=== PATIENT | female | born 1980 | race Caucasian/White ===

== ENCOUNTER 2017-02-10 08:34 | Observation (INO) | payer OTHER ==
[~2017-02-10] VITALS: Ht 165.1 cm; Wt 65.8 kg
[~2017-02-10 08:34] MED LIST: DOCU240C31 PO; IBUP-1222 PO; METO100T3 PO; OXYC-302 PO; PREN1TAB52 PO
[2017-02-10] MEDS: SODIUM CHLORIDE 0.9% 1,000 ML IV SCH ×2 (09:21→14:32)
[2017-02-10] MEDS ORDERED: CEFAZOLIN PMX 1GM/50ML 50 ML IVPB ONE (09:30)
[2017-02-10] MEDS ORDERED: PLEASE ENTER HEIGHT AND WEIGHT MC SCH (09:30)
[2017-02-10 09:38] LABS: HEMOGLOBIN 14.2 g/dL (11.7-16.4)
[2017-02-10] MEDS ORDERED: FENTANYL PF 250 MCG/5ML ONE (09:38)
[2017-02-10] MEDS ORDERED: MIDAZOLAM 1 MG/ML, 5ML ONE (09:39)
[2017-02-10 09:47] LABS: ASPARTATE AMINO TRANSFERASE 10 U/L (15-37); BLOOD UREA NITROGEN 8 mg/dL (7-18)
[2017-02-10] MEDS ORDERED: METO-95 PO (09:50)
[2017-02-10 09:54] VITALS: BP 102/70
[2017-02-10] MEDS ORDERED: PROPOFOL 10 MG/ML, 20ML ONE (10:08)
[2017-02-10] MEDS ORDERED: SUCCINYLCHOLINE 20 MG/ML, 10ML ONE (10:08)
[2017-02-10] MEDS ORDERED: EPHEDRINE 50 MG/ML, 1ML ONE (10:08)
[2017-02-10] MEDS ORDERED: ROCURONIUM 10 MG/ML ONE (10:08)
[2017-02-10] MEDS ORDERED: CEFAZOLIN 1,000 MG ONE (10:08)
[2017-02-10] MEDS ORDERED: DEXAMETHASONE 4 MG/ML, 5ML ONE (10:08)
[2017-02-10] MEDS ORDERED: ONDANSETRON 2MG/ML, 2ML ONE (10:08)
[2017-02-10] MEDS ORDERED: HYDROcodone/APAP 5/325 TABLET PO PRN (12:00)
[2017-02-10] MEDS ORDERED: ALBUTEROL SULFATE 2.5 MG/3 ML NPPB PRN (12:00)
[2017-02-10] MEDS ORDERED: hydrALAzine 20 MG/ML, 1ML IV PRN (12:00)
[2017-02-10] MEDS ORDERED: ZOLPIDEM 5MG TABLET PO PRN (12:00)
[2017-02-10] MEDS ORDERED: MIDAZOLAM 1 MG/ML, 2ML IV PRN (12:00)
[2017-02-10] MEDS ORDERED: LABETALOL 5MG/ML, 20ML IV PRN (12:00)
[2017-02-10] MEDS ORDERED: FENTANYL PF 100 MCG/2ML IV PRN (12:00)
[2017-02-10] MEDS ORDERED: OXYcodone 5 MG/5 ML ORAL.SOL UDC PO PRN (12:00)
[2017-02-10] MEDS ORDERED: ACETAMINOPHEN 325 MG TABLET PO PRN (12:00)
[2017-02-10] MEDS ORDERED: PROMETHAZINE 25 MG/ML, 1ML IV PRN (12:00)
[2017-02-10] MEDS ORDERED: HYDROmorphone 1 MG/ML, 1ML IV PRN (12:00)
[2017-02-10] MEDS ORDERED: ACETAMINOPHEN 325 MG TABLET ONE (12:19)
[2017-02-10] MEDS ORDERED: ACETAMINOPHEN 650 MG/20.3 ML UDC ONE (12:19)
[2017-02-10] MEDS ORDERED: OXYcodone 5 MG/5 ML ORAL.SOL UDC ONE (12:20)
[2017-02-10 13:40] VITALS: BP 95/68
[2017-02-10 16:11] VITALS: BP 103/66
[2017-02-10] MEDS: CEFAZOLIN PMX 1GM/50ML 50 ML IVPB SCH (19:38)
[2017-02-10 20:00] VITALS: BP 99/63
[2017-02-10] MEDS: SODIUM CHLORIDE FLUSH 10ML SYR IVF SCH (21:00)
[2017-02-11 02:00] VITALS: BP 98/62
[2017-02-11] MEDS: CEFAZOLIN PMX 1GM/50ML 50 ML IVPB SCH (02:55)
[2017-02-11 08:08] VITALS: BP 103/66
[2017-02-11] MEDS ORDERED: HYDR-3240 PO (08:36)
[2017-02-11] MEDS: SODIUM CHLORIDE FLUSH 10ML SYR IVF SCH (08:39)
[2017-02-11] MEDS ORDERED: METOPROLOL SUCCINATE 100 MG TAB.ER.24H PO SCH (09:00)
== END 2017-02-11 11:56 | disposition home or self-care (01) ==
LOC: CACL 08:34 → ORIP 11:44 → 5SO 12:59
PROVIDERS: ADMIT Internal Medicine Cardiovascular Disease; ATTEND Internal Medicine Cardiovascular Disease
DX: I45.81 Long QT syndrome (principal); I49.01 Ventricular fibrillation; Z82.41 Family history of sudden cardiac death
CPT/HCPCS: 33249; 36415; 71010; 71020; 80053; 84702; 85025; 85610; 93005; 93641; 96365; 96375; C1721; C1779; C1892; C1895; G0378; J0330; J0690; J1100; J2250; J2405; J2704; J3010

== ENCOUNTER → 2017-02-17 | Outpatient (CLI) | payer SELFPAY ==
[~2017-02-17] MED LIST changes: +HYDR-3240 PO; +METO-95 PO
== END | disposition home or self-care (01) ==
LOC: CFH 13:32
PROVIDERS: ATTEND Internal Medicine Cardiovascular Disease
DX: Z95.0 Presence of cardiac pacemaker (principal)
CPT/HCPCS: 71020

== ENCOUNTER 2017-04-17 05:05 | Observation (INO) | payer OTHER ==
[~2017-04-17] VITALS: Ht 157.5 cm; Wt 59.1 kg
[2017-04-17] MEDS ORDERED: ASPIRIN 81 MG TABLET CHEW ONE (05:46)
[2017-04-17] MEDS ORDERED: ASPIRIN 81 MG TABLET CHEW PO ONE (06:00)
[2017-04-17] MEDS ORDERED: SODIUM CHLORIDE FLUSH 10ML SYR IVF ONE (06:00)
[2017-04-17] MEDS ORDERED: SODIUM CHLORIDE 0.9% 1,000ML IVBOLUS ONE (06:00)
[2017-04-17 06:10] LABS: BLOOD UREA NITROGEN 10 mg/dL (7-18)
[2017-04-17 06:15] LABS: IS PT STATUS REG ER OR PRE ER? YES
[2017-04-17] MEDS ORDERED: METOCLOPRAMIDE 5 MG/ML, 2ML IVPush ONE (06:30)
[2017-04-17 08:20] VITALS: BP 95/64
[2017-04-17] MEDS: SODIUM CHLORIDE 0.9% 1,000 ML IV SCH ×4 (08:36→18:21)
[2017-04-17] MEDS ORDERED: LABETALOL 5MG/ML, 20ML IVPush PRN (09:00)
[2017-04-17] MEDS: SENNA/DOCUSATE TABLET PO SCH (09:00)
[2017-04-17] MEDS ORDERED: HYDROcodone/APAP 5/325 TABLET PO PRN (09:00)
[2017-04-17] MEDS ORDERED: ENOXAPARIN 40 MG/0.4 ML SQ SCH (09:00)
[2017-04-17] MEDS ORDERED: ONDANSETRON ODT 4 MG PO PRN (09:00)
[2017-04-17] MEDS ORDERED: POLYETHYLENE GLYCOL 17 GM PACKET PO PRN (09:00)
[2017-04-17] MEDS ORDERED: morphine SULFATE 10 MG/ML, 1ML IVPush PRN (09:00)
[2017-04-17] MEDS ORDERED: ONDANSETRON 2MG/ML, 2ML IVPush PRN (09:00)
[2017-04-17] MEDS ORDERED: METOPROLOL SUCCINATE 100 MG TAB.ER.24H PO SCH ×3 (09:00→22:00)
[2017-04-17 10:09] LABS: IS PT STATUS REG ER OR PRE ER? NO
[2017-04-17] MEDS ORDERED: CEFAZOLIN PMX 1GM/50ML 50 ML IVPB ONE (11:00)
[2017-04-17 12:42] VITALS: BP 93/63
[2017-04-17] MEDS ORDERED: LIDOCAINE 2%, 20ML ONE (12:48)
[2017-04-17] MEDS ORDERED: MIDAZOLAM 1 MG/ML, 5ML ONE (12:48)
[2017-04-17] MEDS ORDERED: FENTANYL PF 100 MCG/2ML ONE (12:48)
[2017-04-17] MEDS ORDERED: CEFAZOLIN PMX 1GM/50ML 50 ML ONE (12:48)
[2017-04-17] MEDS ORDERED: CEFAZOLIN 1,000 MG ONE (12:48)
[2017-04-17 15:29] LABS: IS PT STATUS REG ER OR PRE ER? NO
[2017-04-17 20:00] VITALS: BP 96/61
[2017-04-18 01:25] VITALS: BP 100/63
[2017-04-18] MEDS: SODIUM CHLORIDE 0.9% 1,000 ML IV SCH ×2 (01:51→08:36)
[2017-04-18] MEDS ORDERED: ASPIRIN 81 MG TABLET EC PO SCH (06:00)
[2017-04-18 06:56] LABS: BLOOD UREA NITROGEN 9 mg/dL (7-18)
[2017-04-18 07:22] LABS: ASPARTATE AMINO TRANSFERASE 11 U/L (15-37)
[2017-04-18 07:41] VITALS: BP 97/61
[2017-04-18] MEDS ORDERED: METOPROLOL SUCCINATE 100 MG TAB.ER.24H PO SCH ×2 (09:00→21:00)
[2017-04-18] MEDS: SENNA/DOCUSATE TABLET PO SCH (09:00)
[2017-04-18 13:25] VITALS: BP 97/61
[2017-04-18] MEDS ORDERED: ASPI-621 PO (14:12)
== END 2017-04-18 17:05 | disposition home or self-care (01) ==
LOC: ED 06:51 → EDIP 06:52 → INTOOBSV 06:52 → ED 07:10 → 5SO 08:02
DX: T82.120A Displacement of cardiac electrode, initial encounter (principal); R74.8 Abnormal levels of other serum enzymes; R00.2 Palpitations; I45.81 Long QT syndrome; Y71.2 Prosthetic and other implants, materials and accessory cardiovascular devices associated with adverse incidents; Z82.41 Family history of sudden cardiac death; Z83.3 Family history of diabetes mellitus; Z87.891 Personal history of nicotine dependence; Z95.0 Presence of cardiac pacemaker; Z95.810 Presence of automatic (implantable) cardiac defibrillator
CPT/HCPCS: 33215; 36415; 71010; 80048; 80053; 80061; 82040; 82607; 82746; 83735; 83880; 84439; 84484; 84702; 85025; 85610; 93005; 93306; 99156; 99285; G0378; J0690; J2250; J3010; J3490; J7030

== ENCOUNTER → 2017-05-22 | Outpatient (CLI) | payer BC, OTHER ==
[~2017-05-22] MED LIST changes: +ASPI-621 PO
== END | disposition home or self-care (01) ==
LOC: CFH 15:08
PROVIDERS: ATTEND Internal Medicine Cardiovascular Disease
DX: Z48.812 Encounter for surgical aftercare following surgery on the circulatory system (principal); Z95.810 Presence of automatic (implantable) cardiac defibrillator
CPT/HCPCS: 71020

== ENCOUNTER 2017-05-26 11:07 | Observation (INO) | payer OTHER, BC ==
[~2017-05-26] VITALS: Ht 157.5 cm; Wt 61.2 kg
[2017-05-26] MEDS ORDERED: SODIUM CHLORIDE 0.9% 1,000 ML IV SCH (11:22)
[2017-05-26] MEDS ORDERED: CEFAZOLIN PMX 1GM/50ML 50 ML IVPB ONE (11:30)
[2017-05-26] MEDS ORDERED: PLEASE ENTER HEIGHT AND WEIGHT MC SCH (12:00)
[2017-05-26 12:05] VITALS: BP 95/67
[2017-05-26] MEDS ORDERED: MIDAZOLAM 1 MG/ML, 5ML ONE (13:09)
[2017-05-26] MEDS ORDERED: LIDOCAINE 2%, 20ML ONE (13:10)
[2017-05-26] MEDS ORDERED: FENTANYL PF 100 MCG/2ML ONE (13:10)
[2017-05-26] MEDS ORDERED: CEFAZOLIN PMX 1GM/50ML 50 ML ONE (13:10)
[2017-05-26] MEDS ORDERED: CEFAZOLIN 1,000 MG ONE (13:10)
[2017-05-26 13:12] LABS: BLOOD UREA NITROGEN 7 mg/dL (7-18)
[2017-05-26] MEDS ORDERED: HYDROcodone/APAP 5/325 TABLET PO PRN (14:30)
[2017-05-26] MEDS: CEFAZOLIN PMX 1GM/50ML 50 ML IVPB SCH (17:38)
[2017-05-26 18:26] VITALS: BP 112/79
[2017-05-26] MEDS: SODIUM CHLORIDE FLUSH 10ML SYR IVF SCH (20:10)
[2017-05-27] MEDS: CEFAZOLIN PMX 1GM/50ML 50 ML IVPB SCH (01:08)
[2017-05-27 01:18] VITALS: BP 93/62
[2017-05-27] MEDS: METOPROLOL SUCCINATE 100 MG TAB.ER.24H PO SCH ×2 (09:00→09:37)
[2017-05-27] MEDS: SODIUM CHLORIDE FLUSH 10ML SYR IVF SCH (09:38)
[2017-05-27 09:39] VITALS: BP 99/68
== END 2017-05-27 10:53 | disposition home or self-care (01) ==
LOC: CACL 11:07 → ORIP 14:14 → 5SO 14:49
PROVIDERS: ADMIT Internal Medicine Cardiovascular Disease; ATTEND Internal Medicine Cardiovascular Disease
DX: T82.110A Breakdown (mechanical) of cardiac electrode, initial encounter (principal); I45.81 Long QT syndrome; Y71.2 Prosthetic and other implants, materials and accessory cardiovascular devices associated with adverse incidents
CPT/HCPCS: 33216; 33244; 36415; 71010; 80048; 84702; 85025; 85610; 93005; 96365; 96375; 99156; 99157; C1892; C1895; G0378; J0690; J2250; J3010; J3490; Q9967

== ENCOUNTER → 2017-06-08 | Outpatient (CLI) | payer BC | END | disposition home or self-care (01) | LOC: CFH 13:28 | PROVIDERS: ATTEND Internal Medicine Cardiovascular Disease | DX: Z95.810 Presence of automatic (implantable) cardiac defibrillator (principal) | CPT/HCPCS: 71020 ==

== ENCOUNTER 2017-06-28 17:17 | Emergency (ER) | payer BC ==
[~2017-06-28] VITALS: Ht 157.5 cm; Wt 66.7 kg
[2017-06-28] MEDS ORDERED: ASPIRIN 81 MG TABLET CHEW PO ONE (18:00)
[2017-06-28] MEDS ORDERED: SODIUM CHLORIDE FLUSH 10ML SYR IVF ONE (18:00)
[2017-06-28] MEDS ORDERED: ONDANSETRON 2MG/ML, 2ML IVPush ONE (18:00)
[2017-06-28] MEDS ORDERED: MORPHINE SULFATE 4 MG/ML, 1ML IVPush PRN (18:00)
[2017-06-28 18:04] LABS: HEMATOCRIT 35.9 % (34.6-47.8); HEMOGLOBIN 12.1 g/dL (11.7-16.4); WHITE BLOOD COUNT 7.6 x10^3/uL (3.4-10)
[2017-06-28 18:11] LABS: BLOOD UREA NITROGEN 11 mg/dL (7-18)
[2017-06-28 18:16] LABS: IS PT STATUS REG ER OR PRE ER? YES
[2017-06-28] MEDS ORDERED: ASPIRIN 81 MG TABLET CHEW ONE (18:16)
[2017-06-28] MEDS ORDERED: MORPHINE SULFATE 4 MG/ML, 1ML ONE (18:16)
[2017-06-28] MEDS ORDERED: ONDANSETRON 2MG/ML, 2ML ONE (18:16)
[2017-06-28 19:24] VITALS: BP 100/46
== END 2017-06-28 19:26 | disposition home or self-care (01) ==
LOC: ED 19:20
DX: R07.2 Precordial pain (principal)
CPT/HCPCS: 36415; 71010; 80048; 82040; 83880; 84484; 85025; 93005; 99285

== ENCOUNTER 2017-07-12 16:18 | Emergency (ER) | payer BC ==
[~2017-07-12] VITALS: Ht 157.5 cm; Wt 70.6 kg
[2017-07-12 16:55] LABS: HEMATOCRIT 39.8 % (34.6-47.8); HEMOGLOBIN 13.4 g/dL (11.7-16.4); WHITE BLOOD COUNT 8.4 x10^3/uL (3.4-10)
[2017-07-12] MEDS ORDERED: ONDANSETRON 2MG/ML, 2ML IVPush ONE (17:00)
[2017-07-12] MEDS ORDERED: SODIUM CHLORIDE FLUSH 10ML SYR IVF ONE (17:00)
[2017-07-12 17:07] LABS: ASPARTATE AMINO TRANSFERASE 30 U/L (15-37); BLOOD UREA NITROGEN 8 mg/dL (7-18)
[2017-07-12 17:15] LABS: IS PT STATUS REG ER OR PRE ER? YES
[2017-07-12] MEDS ORDERED: ONDANSETRON ODT 4 MG ONE (19:10)
[2017-07-12] MEDS ORDERED: ONDANSETRON ODT 4 MG PO ONE (19:30)
[2017-07-12 20:12] VITALS: BP 101/48
== END 2017-07-12 20:19 | disposition home or self-care (01) ==
LOC: ED 18:43
DX: R10.84 Generalized abdominal pain (principal); R19.7 Diarrhea, unspecified
CPT/HCPCS: 36415; 71010; 80053; 83690; 83880; 84484; 84703; 85025; 93005; 99285; Q0162

== ENCOUNTER → 2017-07-12 | Outpatient (CLI) | payer BC | END | disposition home or self-care (01) | LOC: CFH 14:07 | PROVIDERS: ATTEND Family Medicine | DX: K82.8 Other specified diseases of gallbladder (principal); J90 Pleural effusion, not elsewhere classified | CPT/HCPCS: 76700 ==

== ENCOUNTER 2017-07-22 11:35 | Inpatient (IN) | payer BC ==
[~2017-07-22] VITALS: Ht 157.5 cm; Wt 61.4 kg
[2017-07-22] MEDS ORDERED: SODIUM CHLORIDE FLUSH 10ML SYR IVF ONE (13:00)
[2017-07-22 13:08] LABS: HEMOGLOBIN 15.3 g/dL (11.7-16.4); WHITE BLOOD COUNT 9.8 x10^3/uL (3.4-10)
[2017-07-22 13:22] LABS: BLOOD UREA NITROGEN 6 mg/dL (7-18)
[2017-07-22 13:28] LABS: ASPARTATE AMINO TRANSFERASE 19 U/L (15-37)
[2017-07-22 13:32] LABS: IS PT STATUS REG ER OR PRE ER? YES
[2017-07-22] MEDS ORDERED: SODIUM CHLORIDE 0.9% 1,000ML IVBOLUS ONE ×3 (14:00→21:30)
[2017-07-22] MEDS ORDERED: OMNIPAQUE 350 MG/ML, 100ML BOTTLE ONE (16:19)
[2017-07-22] MEDS ORDERED: SODIUM CHLORIDE 0.9% 1,000 ML IV SCH (17:30)
[2017-07-22] MEDS ORDERED: ONDANSETRON 2MG/ML, 2ML IVPush PRN (17:30)
[2017-07-22] MEDS ORDERED: morphine SULFATE 10 MG/ML, 1ML IVPush PRN (17:30)
[2017-07-22] MEDS ORDERED: POLYETHYLENE GLYCOL 17 GM PACKET PO PRN (17:30)
[2017-07-22] MEDS ORDERED: BISACODYL 10 MG SUPP PR PRN (17:30)
[2017-07-22] MEDS ORDERED: ACETAMINOPHEN 325 MG TABLET PO PRN (17:30)
[2017-07-22] MEDS ORDERED: HYDROcodone/APAP 5/325 TABLET PO PRN (17:30)
[2017-07-22] MEDS ORDERED: SODIUM CHLORIDE FLUSH 10ML SYR IVF PRN (18:00)
[2017-07-22] MEDS ORDERED: LIDOCAINE 2%, 20ML ONE (18:08)
[2017-07-22] MEDS ORDERED: FENTANYL PF 100 MCG/2ML ONE (18:08)
[2017-07-22] MEDS ORDERED: MIDAZOLAM 1 MG/ML, 5ML ONE (18:08)
[2017-07-22 20:16] LABS: IS PT STATUS REG ER OR PRE ER? NO
[2017-07-22 20:42] LABS: LACTATE DEHYDROGENASE 246 U/L (84-246)
[2017-07-22] MEDS: SODIUM CHLORIDE FLUSH 10ML SYR IVF SCH (21:00)
[2017-07-22 22:02] LABS: CYTOLOGY BODY FLUID RECD INTO PATHOLOGY; CYTOLOGY BODY FLUID SOURCE PERICARDIAL FLUID
[2017-07-22] MEDS ORDERED: HEPARIN 5,000 UNITS/ML, 1ML IV ONE (23:30)
[2017-07-23] MEDS: HEPARIN 25,000 UNITS/500ML PMX 500 ML IV PRN (00:05)
[2017-07-23 00:21] LABS: IS PT STATUS REG ER OR PRE ER? NO
[2017-07-23 03:07] VITALS: BP 98/62
[2017-07-23 03:22] VITALS: BP 96/64
[2017-07-23 04:03] VITALS: BP 99/63
[2017-07-23 06:10] LABS: HEMATOCRIT 42.3 % (34.6-47.8); WHITE BLOOD COUNT 10.1 x10^3/uL (3.4-10)
[2017-07-23 06:19] LABS: ASPARTATE AMINO TRANSFERASE 14 U/L (15-37); BLOOD UREA NITROGEN 3 mg/dL (7-18)
[2017-07-23] MEDS: HEPARIN 5,000 UNITS/ML, 1ML IV PRN ×3 (06:35→20:55)
[2017-07-23] MEDS: SODIUM CHLORIDE FLUSH 10ML SYR IVF SCH ×2 (10:20→20:51)
[2017-07-23] MEDS ORDERED: MAGNESIUM SULFATE PMX 4GM/100M 100 ML IV ONE (11:30)
[2017-07-23] MEDS ORDERED: POTASSIUM CHLORIDE 20 MEQ TAB.ER.PRT PO ONE (11:30)
[2017-07-23] MEDS: POTASSIUM CHLORIDE 40 MEQ in SODIUM CHLORIDE 0.9% 1,000 ML IV SCH ×2 (12:50→19:34)
[2017-07-23] MEDS ORDERED: SODIUM CHLORIDE 0.9% 1,000 ML IV SCH (17:30)
[2017-07-24] MEDS: POTASSIUM CHLORIDE 40 MEQ in SODIUM CHLORIDE 0.9% 1,000 ML IV SCH ×2 (02:20→10:16)
[2017-07-24 03:30] LABS: HEMATOCRIT 40.4 % (34.6-47.8); HEMOGLOBIN 13.4 g/dL (11.7-16.4); WHITE BLOOD COUNT 7.7 x10^3/uL (3.4-10)
[2017-07-24 03:41] LABS: ASPARTATE AMINO TRANSFERASE 10 U/L (15-37); BLOOD UREA NITROGEN 1 mg/dL (7-18)
[2017-07-24] MEDS: HEPARIN 25,000 UNITS/500ML PMX 500 ML IV PRN (03:50)
[2017-07-24 03:52] LABS: DIFF TOTAL CELLS COUNTED 100 CELL DIFF
[2017-07-24 03:56] LABS: ANISOCYTOSIS 1+; VERIFY COUNTS? YES
[2017-07-24 03:57] LABS: LARGE PLATELETS 1+
[2017-07-24 04:00] VITALS: BP 97/60
[2017-07-24] MEDS: DOCUSATE 100 MG CAPSULE PO PRN (09:08)
[2017-07-24] MEDS: SODIUM CHLORIDE FLUSH 10ML SYR IVF SCH ×2 (10:16→21:09)
[2017-07-25 04:00] VITALS: BP 98/66
[2017-07-25 04:39] LABS: BLOOD UREA NITROGEN 2 mg/dL (7-18)
[2017-07-25] MEDS: SODIUM CHLORIDE FLUSH 10ML SYR IVF SCH ×2 (11:00→21:32)
[2017-07-25] MEDS ORDERED: POTASSIUM CHLORIDE 40 MEQ in SODIUM CHLORIDE 0.9% 1,000 ML IV SCH (12:30)
[2017-07-25] MEDS ORDERED: HEPARIN 5,000 UNITS/ML, 1ML IVPush ONE (14:00)
[2017-07-25] MEDS: HEPARIN 25,000 UNITS/500ML PMX 500 ML IV PRN (14:18)
[2017-07-25] MEDS: HEPARIN 5,000 UNITS/ML, 1ML IV PRN (21:37)
[2017-07-26 04:00] VITALS: BP 86/61
[2017-07-26 04:09] LABS: HEMATOCRIT 45.6 % (34.6-47.8); HEMOGLOBIN 15.1 g/dL (11.7-16.4); WHITE BLOOD COUNT 7.3 x10^3/uL (3.4-10)
[2017-07-26 04:21] LABS: ASPARTATE AMINO TRANSFERASE 15 U/L (15-37); BLOOD UREA NITROGEN 4 mg/dL (7-18)
[2017-07-26] MEDS ORDERED: LIDOCAINE-MPF 1%, 2ML ONE (11:00)
[2017-07-26] MEDS: SODIUM CHLORIDE FLUSH 10ML SYR IVF SCH ×2 (11:18→20:25)
[2017-07-26] MEDS ORDERED: LIDOCAINE 1%, 2ML INFIL ONE (11:30)
[2017-07-26 16:07] LABS: COMPLEMENT C3 132 mg/dL (82-167); COMPLEMENT C4 17 mg/dL (14-44); INTERMYOFIBRILLAR AB Negative (Neg:<1:20); MITOCHONDRIAL (M2) AB 17.6 Units (0.0-20.0); PARIETAL CELL AB 3.4 Units (0.0-20.0); RA LATEX TURBIDITY <10.0 IU/mL (0.0-13.9); SARCOLEMMA AB Negative (Neg:<1:20); STRIATION AB Negative (Neg:<1:40); THYROID PEROXIDASE (TPO) AB 12 IU/mL (0-34)
[2017-07-26 18:35] VITALS: BP 97/65
[2017-07-26] MEDS: HEPARIN 25,000 UNITS/500ML PMX 500 ML IV PRN (19:14)
[2017-07-26 23:06] LABS: APTT 28.8 sec (.); PROTHROMBIN TIME 16.8 sec (.)
[2017-07-27 01:50] VITALS: BP 90/61
[2017-07-27 06:01] LABS: HEMATOCRIT 44.4 % (34.6-47.8); HEMOGLOBIN 14.7 g/dL (11.7-16.4); WHITE BLOOD COUNT 5.8 x10^3/uL (3.4-10)
[2017-07-27 06:17] LABS: BLOOD UREA NITROGEN 4 mg/dL (7-18)
[2017-07-27 06:39] VITALS: BP 100/66
[2017-07-27] MEDS: HEPARIN 5,000 UNITS/ML, 1ML IV PRN (07:40)
[2017-07-27] MEDS: SODIUM CHLORIDE FLUSH 10ML SYR IVF SCH ×2 (07:40→20:54)
[2017-07-27 13:18] VITALS: BP 99/71
[2017-07-27] MEDS ORDERED: CEFAZOLIN 1,000 MG IM SCH (16:30)
[2017-07-27] MEDS: CEFAZOLIN PMX 2GM/50ML 50 ML IV SCH (19:30)
[2017-07-27 20:34] VITALS: BP 98/67
[2017-07-28] MEDS: CEFAZOLIN PMX 2GM/50ML 50 ML IV SCH ×3 (03:35→20:56)
[2017-07-28] MEDS: HEPARIN 25,000 UNITS/500ML PMX 500 ML IV PRN (03:41)
[2017-07-28 03:49] VITALS: BP 88/56
[2017-07-28 04:28] LABS: HEMATOCRIT 42.8 % (34.6-47.8); HEMOGLOBIN 14.1 g/dL (11.7-16.4); WHITE BLOOD COUNT 5.6 x10^3/uL (3.4-10)
[2017-07-28 04:39] LABS: ASPARTATE AMINO TRANSFERASE 30 U/L (15-37); BLOOD UREA NITROGEN 7 mg/dL (7-18)
[2017-07-28 07:35] VITALS: BP 88/60
[2017-07-28] MEDS: DOCUSATE 100 MG CAPSULE PO PRN (10:14)
[2017-07-28] MEDS: SODIUM CHLORIDE FLUSH 10ML SYR IVF SCH ×2 (10:14→20:56)
[2017-07-28 13:11] VITALS: BP 92/68
[2017-07-28 20:38] VITALS: BP 91/58
[2017-07-29 01:27] VITALS: BP 100/68
[2017-07-29] MEDS: CEFAZOLIN PMX 2GM/50ML 50 ML IV SCH ×3 (05:13→21:05)
[2017-07-29] MEDS: HEPARIN 25,000 UNITS/500ML PMX 500 ML IV PRN (05:17)
[2017-07-29] MEDS: HEPARIN 5,000 UNITS/ML, 1ML IV PRN (06:21)
[2017-07-29 07:00] VITALS: BP 91/59
[2017-07-29] MEDS: SODIUM CHLORIDE FLUSH 10ML SYR IVF SCH ×2 (12:51→21:05)
[2017-07-29 14:17] VITALS: BP 94/64
[2017-07-29] MEDS ORDERED: morphine SULFATE 10 MG/ML, 1ML IVPush PRN (19:00)
[2017-07-29] MEDS ORDERED: BISACODYL 10 MG SUPP PR PRN (19:00)
[2017-07-29] MEDS ORDERED: HYDROcodone/APAP 5/325 TABLET PO PRN (19:00)
[2017-07-29] MEDS ORDERED: POLYETHYLENE GLYCOL 17 GM PACKET PO PRN (19:00)
[2017-07-29] MEDS ORDERED: DOCUSATE 100 MG CAPSULE PO PRN (19:00)
[2017-07-29] MEDS ORDERED: ACETAMINOPHEN 325 MG TABLET PO PRN (19:00)
[2017-07-29 20:56] VITALS: BP 99/51
[2017-07-30 01:46] VITALS: BP 98/61
[2017-07-30] MEDS: CEFAZOLIN PMX 2GM/50ML 50 ML IV SCH ×3 (05:04→21:57)
[2017-07-30] MEDS: HEPARIN 25,000 UNITS/500ML PMX 500 ML IV PRN (05:08)
[2017-07-30 07:40] VITALS: BP 92/60
[2017-07-30] MEDS: SODIUM CHLORIDE FLUSH 10ML SYR IVF SCH ×2 (10:59→21:57)
[2017-07-30 13:43] VITALS: BP 106/70
[2017-07-30 21:54] VITALS: BP 99/67
[2017-07-31 02:00] VITALS: BP 85/53
[2017-07-31 02:47] VITALS: BP 106/73
[2017-07-31] MEDS: CEFAZOLIN PMX 2GM/50ML 50 ML IV SCH ×3 (05:38→21:24)
[2017-07-31 06:11] LABS: HEMATOCRIT 42.5 % (34.6-47.8); HEMOGLOBIN 14.1 g/dL (11.7-16.4); WHITE BLOOD COUNT 5.3 x10^3/uL (3.4-10)
[2017-07-31 06:45] LABS: ASPARTATE AMINO TRANSFERASE 56 U/L (15-37); BLOOD UREA NITROGEN 7 mg/dL (7-18); C-REACTIVE PROTEIN, QUANT 0.49 mg/dL (0.02-0.49)
[2017-07-31 08:12] VITALS: BP 105/63
[2017-07-31] MEDS: SODIUM CHLORIDE FLUSH 10ML SYR IVF SCH ×2 (09:10→21:24)
[2017-07-31] MEDS: HEPARIN 25,000 UNITS/500ML PMX 500 ML IV PRN (09:17)
[2017-07-31 13:29] VITALS: BP 99/65
[2017-07-31 20:00] VITALS: BP 97/62
[2017-07-31] MEDS: APIXABAN 5 MG TABLET PO SCH (21:24)
[2017-08-01 02:00] VITALS: BP 97/65
[2017-08-01] MEDS: CEFAZOLIN PMX 2GM/50ML 50 ML IV SCH ×3 (04:49→20:16)
[2017-08-01 08:00] VITALS: BP 95/62
[2017-08-01] MEDS: SODIUM CHLORIDE FLUSH 10ML SYR IVF SCH ×2 (09:19→20:16)
[2017-08-01] MEDS: APIXABAN 5 MG TABLET PO SCH ×2 (09:19→20:17)
[2017-08-01 09:30] VITALS: BP 97/65
[2017-08-01 13:28] VITALS: BP 110/73
[2017-08-01 18:56] VITALS: BP 90/60
[2017-08-02 02:29] VITALS: BP 95/66
[2017-08-02] MEDS: CEFAZOLIN PMX 2GM/50ML 50 ML IV SCH ×2 (04:16→13:45)
[2017-08-02 06:59] VITALS: BP 90/58
[2017-08-02] MEDS: APIXABAN 5 MG TABLET PO SCH (09:16)
[2017-08-02] MEDS: SODIUM CHLORIDE FLUSH 10ML SYR IVF SCH (09:16)
[2017-08-02] MEDS ORDERED: CEFT2FRO2 IV (09:32)
[2017-08-02] MEDS ORDERED: APIX5TAB PO (09:32)
[2017-08-02] MEDS ORDERED: CEFTRIAXONE PMX 2GM/50ML 50 ML IV SCH (12:00)
[2017-08-02 14:27] VITALS: BP 94/61
[2017-08-07] MEDS ORDERED: APIXABAN 5 MG TABLET PO SCH (21:00)
== END 2017-08-02 17:20 | disposition home or self-care (01) | DRG 314 ==
LOC: ED 13:08 → EDIP 18:07 → CCU 19:26 → 5SO 07-26 14:45 → DCLOUNGE 08-02 16:10
PROVIDERS: ADMIT Internal Medicine; ATTEND Family Medicine
PROC: 0W9D3ZZ Drainage of Pericardial Cavity, Percutaneous Approach (ICD-10-PCS; principal; 2017-07-22)
PROC: B24CZZZ Ultrasonography of Pericardium (ICD-10-PCS; 2017-07-22)
PROC: 02HV33Z Insertion of Infusion Device into Superior Vena Cava, Percutaneous Approach (ICD-10-PCS; 2017-07-23)
PROC: B548ZZA Ultrasonography of Superior Vena Cava, Guidance (ICD-10-PCS; 2017-07-23)
DX: I31.4 Cardiac tamponade (principal); I26.99 Other pulmonary embolism without acute cor pulmonale; I47.2 Ventricular tachycardia; J90 Pleural effusion, not elsewhere classified; I30.1 Infective pericarditis; D68.62 Lupus anticoagulant syndrome; D68.69 Other thrombophilia; E86.0 Dehydration; J98.11 Atelectasis; D75.89 Other specified diseases of blood and blood-forming organs; I45.81 Long QT syndrome; K59.00 Constipation, unspecified; N83.201 Unspecified ovarian cyst, right side; Z83.3 Family history of diabetes mellitus; Z86.711 Personal history of pulmonary embolism; Z95.810 Presence of automatic (implantable) cardiac defibrillator; Z87.891 Personal history of nicotine dependence
CPT/HCPCS: 33010; 36415; 36569; 71010; 71020; 71275; 74176; 76930; 76937; 77001; 80048; 80053; 81241; 82042; 82150; 82607; 82746; 82945; 83516; 83615; 83690; 83735; 83986; 84100; 84157; 84311; 84478; 84484; 85025; 85301; 85303; 85306; 85520; 85598; 85610; 85613; 85651; 85670; 85730; 85732; 86038; 86140; 86141; 86146; 86147; 86160; 86225; 86235; 86255; 86256; 86376; 86431; 87015; 87040; 87070; 87075; 87077; 87081; 87102; 87116; 87181; 87205; 87206; 88112; 88305; 88341; 88342; 89051; 93005; 93306; 93308; 93321; 93325; 93970; 99156; 99157; C1729; C1894; J0690; J1644; J2250; J2405; J3010; J3480; J3490; Q9967; C1751; G0461; J2270; J3475; J7030